=== PATIENT | male | born 1995 | race Asian ===

== ENCOUNTER 2021-10-13 11:59 | Emergency (ER) | payer BC ==
[~2021-10-13] VITALS: Ht 182.9 cm; Wt 74.8 kg
[2021-10-13 12:04] VITALS: BP_SYST 126
--- NOTE | 2021-10-13 12:08 | NUR ---
Pt triaged in waiting room
--- NOTE | 2021-10-13 12:20 | NUR ---
Patient to ER bed room 6 for evaluation. bed lowered and locked, Side rails up. Report given to Nella JUNG, and Yvette JUNG.
--- NOTE | 2021-10-13 12:26 | NUR ---
ER at bedside examining patient.
--- NOTE | 2021-10-13 12:30 | NUR ---
Pt in bed #6 coming from home ambulatory with steady gait. Pt is A&Ox4. Skin intact. Pt c/o abdominal pain that started last week. Pt states he has hx of IBS. NKA. No other medical conditions. Rates abdominal pain 5/10 non-radiating. No chest pain and no sob. Denies n/v. Bed in lowest position. VSS.
[2021-10-13] MEDS ORDERED: KETOROLAC TROMETHAMINE 60 MG/2 ML VIAL IM ONE (12:45)
--- NOTE | 2021-10-13 12:45 | NUR ---
Ketorolac 2ml given to pt IM on left deltoid. Pt has no c/o. VSS.
[2021-10-13] MEDS ORDERED: NAPR-688 PO (13:00)
[2021-10-13] MEDS ORDERED: LORA-258 PO (13:00)
[2021-10-13 13:20] VITALS: BP_SYST 113
--- NOTE | 2021-10-13 13:20 | NUR ---
Patient given written and verbal discharge instructions and verbalizes understanding. ER Dr. Carroll discussed with patient the results and treatment provided. Patient in stable condition. ID arm band removed. . Rx of lorazepam and naproxen given. Patient educated on pain management and to follow up with PMD. Pain Scale 0. Opportunity for questions provided and answered. Medication side effect fact sheet provided.
== END 2021-10-13 13:20 | disposition home or self-care (01) ==
LOC: EDSEX 11:59 → SED 11:59
DX: K58.9 Irritable bowel syndrome, unspecified (principal); Z79.899 Other long term (current) drug therapy
CPT/HCPCS: 96372; 99283; J1885